=== PATIENT | male | born 2000 | race Hispanic/Latino ===

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

== ENCOUNTER 2020-11-22 11:47 | Observation (INO) | payer BC ==
[2020-11-22 12:20] VITALS: BMI 38.2
--- NOTE | 2020-11-22 12:59 | RAD REPORT ---
EXAM DESCRIPTION: CTAbdomen Pelvis W Contrast - 11/22/2020 12:44 pm CLINICAL HISTORY: Abdominal pain. abdominal pain COMPARISON: No comparisons TECHNIQUE: Biphasic CT imaging of the abdomen and pelvis was performed with 100 ml non-ionic IV cont rast. All CT scans are performed using dose optimization technique as appropriate and may include automated exposure control or mA/KV adjustment according to patient size. FINDINGS: The lung bases are clear. Hepatic steatosis with areas of fatty sparing. Gallbladder is unremarkable. The adrenal glands are un remarkable. The spleen is unremarkable. The pancreas unremarkable. No stones or hydronephrosis. No re troperitoneal lymphadenopathy. No bowel obstruction, free air, free fluid or abscess. Along the tip of the appendix, there is some adjacent stranding as well as thickening of the parietal peritoneum. The base of the appendix has air and the appendix is nondilated. No appendicolith is identified. No suspicious bony findings. IMPRESSION: Mild stranding with adjacent peritoneal thickening at the tip of the appendix. This coul d represent early or mild acute appendicitis.
[2020-11-22] MEDS ORDERED: ONDANSETRON 4 MG/2 ML VIAL IV PRN (13:00)
[2020-11-22] MEDS ORDERED: POLYETHYL GLY 3350 17 GM/DOSE PO PRN (13:00)
[2020-11-22] MEDS ORDERED: ACETAMINOPHEN 325 MG TABLET PO PRN (13:00)
[2020-11-22] MEDS ORDERED: ONDANSETRON 4 MG (ODT) TAB PO PRN (13:00)
[2020-11-22] MEDS ORDERED: LOPERAMIDE HCL 2 MG CAPSULE PO PRN (13:00)
[2020-11-22] MEDS ORDERED: DIPHENHYDRAMINE 25 MG TAB/CAP PO PRN (13:00)
--- NOTE | 2020-11-22 13:09 | RAD REPORT ---
EXAM DESCRIPTION: RAD - Chest Pa And Lat (2 Views) - 11/22/2020 12:51 pm CLINICAL HISTORY: abdominal pain direct admit COMPARISON: Chest Pa And Lat (2 Views) dated 07/08/2018; Chest Single View dated 08/28/2017 FINDINGS: No edema or evidence of pneumonia. Normal heart size. Visualized upper abdomen is unremark able. No fractures are identified. IMPRESSION: No acute cardiopulmonary disease.
[2020-11-22] MEDS: CEFOXITIN/SWI 1gm 1 GM/10 ML SYR IV SCH ×2 (13:30→17:01)
[2020-11-22] MEDS: NACHLORIDE 0.45% 1,000 ML IV SCH (13:30)
[2020-11-22 13:50] LABS: Absolute Lymphocytes (CBC) 2.6 K/uL (0.7-4.9); Basophils % 0.4 % (0-1.3); Hematocrit 41.8 % (39.6-49.0); Lymphocytes % 24.9 % (15.3-44.8); MPV 8.3 fL (7.6-11.3); RBC Red Blood Cell Count 5.11 M/uL (4.33-5.43)
[2020-11-22 14:28] LABS: ALT/SGPT 73 U/L (12-78); AST/SGOT 31 U/L (15-37); Albumin 3.7 g/dL (3.4-5.0); Alkaline Phosphatase 127 U/L (45-117); BUN Blood Urea Nitrogen 9 mg/dL (7-18); Bicarbonate 29 mmol/L (21-32); Bilirubin Direct 0.2 mg/dL (0-0.2); Bilirubin Total 0.6 mg/dL (0.2-1.0); Glucose Level 72 mg/dL (74-106); Magnesium 2.2 mg/dL (1.8-2.4); Phosphorus 3.1 mg/dL (2.5-4.9); Potassium 3.6 mmol/L (3.5-5.1); Protein, Total 7.8 g/dL (6.4-8.2); Sodium Level 138 mmol/L (136-145)
[2020-11-22] MEDS ORDERED: POTASSIUM 25 MEQ EFFERV TAB PO ONE (15:00)
[2020-11-22 21:13] LABS: Urine Appearance CLEAR (Clear); Urine Bilirubin NEGATIVE (Negative); Urine Blood NEGATIVE (Negative); Urine Color YELLOW (Yellow); Urine Glucose NEGATIVE (Negative); Urine Protein NEGATIVE (Negative); Urine Specific Gravity >=1.030 (1.005-1.030); Urine Urobilinogen 0.2 mg/dL (0.2-1.0); Urine pH 6.5 (5.0-7.0)
[2020-11-22 22:29] LABS: Urine Bacteria <20 /HPF (NONE SEEN); Urine RBC NONE SEEN /HPF (NONE SEEN)
[2020-11-23] MEDS: CEFOXITIN/SWI 1gm 1 GM/10 ML SYR IV SCH ×2 (00:22→08:22)
[2020-11-23] MEDS: NACHLORIDE 0.45% 1,000 ML IV SCH (00:22)
[2020-11-23] MEDS ORDERED: CEFOXITIN/SWI 1gm 1 GM/10 ML SYR ONE (08:25)
[2020-11-23] MEDS ORDERED: Ringers Lactate 1,000 ML IV ONE (08:25)
[2020-11-23] MEDS ORDERED: ENOXAPARIN 40 MG/0.4 ML SQ SCH (09:00)
--- NOTE | 2020-11-23 09:20 | P.HP ---
Date of Service: 11/23/20 PC: This 20-year-old male presents emergency room with severe right lower quadrant abdominal pain for diagnosis and treatment. HPC: Patient is experiencing right lower quadrant abdominal pain off and on for recess for the last few months. Yesterday however the pain became very severe, would not go away, and even hurting when he walked. PMH: Asthma PSHx: Negative SOC: No known allergies, occasionally uses an inhaler but has not needed it for the last few months. SYS REVIEW: No cough, wheeze, shortness of breath. No chest pain or palpitations. Denies any urinary problems. Intermittent pain as described. O/E awake alert vital signs are stable HEENT: Within normal limits Chest: Air entry equal bilaterally ABD: Tender with guarding in the right lower quadrant LOCO: Intact DATA: CT scan suggests early appendicitis IMPRESSION: Acute abdomen with appendicitis PLAN: I will take him the operating room for laparoscopic possible open appendectomy. The risks of this procedure have been discussed. The possibility of bleeding, infection, injury to bowel and surrounding structures have been described. The possible need for an open and/or further surgeries and procedures was discussed. He understands and wants us to proceed.
--- NOTE | 2020-11-23 10:33 | P.OP ---
Preoperative diagnosis: Acute abdomen with appendicitis Postoperative diagnosis: Acute appendicitis Primary procedure: Laparoscopic appy Estimated blood loss: Less than 10 cc Specimen: 1 appendix Operative Technique: The patient was brought to the operating room, and placed supine on the table. After the induction of adequate general endotracheal anesthesia, the area of the abdomen was prepped with a DuraPrep solution, and he was draped in the usual aseptic manner. A subumbilical incision was made. This was brought down through the skin and subcutaneous tissue. The Visiport was used to enter the peritoneal cavity and created pneumoperitoneum to approximately 12 mm of mercury. Under direct vision a 5 mm trocar was placed in the lower midline and another 5 mm in the right upper quadrant. The patient was then positioned in Trendelenburg and rolled to the left. We were able to visualize right lower quadrant. We could see some inflammation at the base the cecum. This led to an appendix that traced down and low laterally in the retroperitoneum. The appendix was identified and found being acutely inflamed. The peritoneum was opened to liberate the appendix. The appendix was then gently dissected from the surrounding structures. The junction of the appendix with the with the cecum was identified. An opening was made in the mesentery of the appendix. The 10 mm trocar was now converted to a 12 with the camera moved to the right upper port with a 5 mm view. The linear Stapler was introduced into the peritoneal cavity. It was placed across the base of the appendix and fired. A vascular reload was then placed into the Stapler. The mesentery of the appendix was then taken down. The appendix having been was placed into an Endo-Catch, brought out through the umbilical port site. Attention was turned back towards the right lower quadrant. The area was gently irrigated with the saline solution. The effluent was aspirated. 0.25% Marcaine was sprayed into the right lower quadrant. Atten tion was turned towards the umbilical trocar. Using the endo-close absorbable sutures were placed to close the defect with 2 sutures. The patient was now returned to the neutral position on the OR table. The pneumoperitoneum was collapsed, the umbilical sutures tied, and mynor applied to the skin. At the end of the procedure the patient was in stable condition and sent to the recovery room. Needle sponge and instrument count were correct. 1 specimen was sent for histopathology. Sterile dressings had been applied. Complications: None Transferred to: Recovery Room Condition: Good
[2020-11-23] MEDS ORDERED: HYDROCODONE/APAP 7.5/325 MG TAB PO PRN (10:39)
[2020-11-23] MEDS ORDERED: MORPHINE 4 MG/ML SYR IV PRN (10:39)
[2020-11-23 11:03] VITALS: O2SAT 96
[2020-11-23 14:16] VITALS: BP 107/61; TEMP 97.9
--- NOTE | 2020-11-23 21:51 | P.DS ---
Admission Date: 11/22/20 Discharge Date: 11/23/20 Disposition: ROUTINE DISCHARGE Discharge Condition: FAIR Brief History of Present Illness: NIDA HAS DONE WELL. HE HAD SURGERY AND DR. SCHAEFER CALLED ME TO DISCHARGE HIM. I CAME TO SEE HIM IN AM AND HE WSA DOWN FOR SURGERY ALREADY. Vital Signs/Physical Exam: Temp Pulse Resp BP Pulse Ox 97.9 F 61 18 107/61 99 11/23/20 12:00 11/23/20 12:00 11/23/20 12:15 11/23/20 12:00 11/23/20 12:15 Laboratory Data at Discharge: WBC Cancelled 11/23/20 12:15 Hgb Cancelled 11/23/20 12:15 Hct Cancelled 11/23/20 12:15 Plt Count Cancelled 11/23/20 12:15 APTT 27.9 SECONDS (24.3-36.9) 11/22/20 13:21 Sodium Cancelled 11/23/20 12:19 Potassium Cancelled 11/23/20 12:19 BUN Cancelled 11/23/20 12:19 Creatinine Cancelled 11/23/20 12:19 Glucose Cancelled 11/23/20 12:19 Phosphorus 3.1 mg/dL (2.5-4.9) 11/22/20 13:21 Magnesium Cancelled 11/23/20 12:19 Total Bilirubin 0.6 mg/dL (0.2-1.0) 11/22/20 13:21 AST 31 U/L (15-37) 11/22/20 13:21 ALT 73 U/L (12-78) 11/22/20 13:21 Alkaline Phosphatase 127 U/L (45-117) H 11/22/20 13:21 Home Medications: Loratadine/Pseudoephedrine [Claritin-D 24 Hour Tablet] 1 tab PO DAILY 11/22/20 Followup: Reginald Blankenship MD [ACTIVE - CAN ADMIT] - Royal Cota MD [ACTIVE - CAN ADMIT] -
--- NOTE | 2020-11-24 07:47 | EKG ---
Test Date: 2020-11-22 Test Time: 14:15:05 Senior Front End Engineer: DREA MEASUREMENT RESULTS: Intervals: Rate: 62 IL: 128 QRSD: 84 QT: 378 QTc: 383 [place]: P: 49 IL: 128 QRS: 48 T: 43 INTERPRETIVE STATEMENTS: Normal sinus rhythm Normal ECG Compared to ECG 08/28/2017 21:56:21 No significant changes Electronically Signed On 11-24-20 07:43:06 CDT by Tl Ramirez
[2020-11-25 11:28] LABS: Vitamin D 1,25-Dihydroxy Total 41 pg/mL (18-72); Vitamin D,1,25-OH2, D2 20 pg/mL
== END 2020-11-23 17:37 | disposition home or self-care (01) ==
LOC: 2ND 11:47
PROVIDERS: ADMIT Internal Medicine; ATTEND Internal Medicine
PROC: 0DTJ4ZZ Resection of Appendix, Percutaneous Endoscopic Approach (ICD-10-PCS; principal; 2020-11-23 08:45)
DX: K35.80 Unspecified acute appendicitis (principal); E66.9 Obesity, unspecified; J45.20 Mild intermittent asthma, uncomplicated; Z68.38 Body mass index [BMI] 38.0-38.9, adult
CPT/HCPCS: 93005; 87040; 85025; 81001; 80048; 36415; 83735; 84100; 80076; 88304; 85730; 82652; 84443; 82607; 74177; 71046; 44970; Q9967; J7120; G0378 ×3